=== PATIENT | female | born 1990 ===

== ENCOUNTER 2016-12-29 19:49 | Emergency (ER) | payer OTHER ==
[~2016-12-29] VITALS: Ht 154.9 cm; Wt 58.9 kg
[2016-12-29 19:53] VITALS: Ht 154.9 cm; Wt 58.9 kg
[2016-12-29] MEDS ORDERED: THIA50TA3 PO (20:22)
[2016-12-29] MEDS ORDERED: CHOL400T PO (20:22)
[2016-12-29 20:29] VITALS: BP 109/70; PULSE 81; TEMP 36.8; O2SAT 98
--- NOTE | 2016-12-30 00:37 | EMERGENCY ROOM VISIT NOTE ---
History First contact with patient: 20:02 Chief Complaint: BITE Stated Complaint: PAIN AND SWELLING DUE TO BEE STING History of Present Illness The patient is a 26 year old female who presents to the Emergency Room with complaints of localized reaction to bee stings approximately 1.5 hours ago. The patient reports being stung near the right breast, left upper chest region and arm. She reports mild itching and redness at the site of the stings. She is concerned that there may be a stinger in the left upper chest sting. She denies any prior history of bee sting allergies. She currently denies any chest pain, shortness of breath or lip/tongue/throat swelling Review of Systems 10 system review was performed and was negative except for pertinent positives and negatives as indicated in history of present illness Past Medical/Surgical History Medical Problems: (1) No significant past medical history Surgical Problems: (1) No history of previous surgery Family History Unremarkable Social History Smoking Status: Never Smoker Alcohol Use: none Marital Status: single Housing Status: lives with family Occupation Status: [employer] student Current/Historical Medications Scheduled Cholecalciferol (Vitamin D), 400 UNITS PO DAILY Thiamine Hcl (Vitamin B-1), 50 MG PO DAILY Physical Exam Vital Signs Date Time Temp Pulse Resp B/P (MAP) Pulse Ox O2 Delivery O2 Flow Rate FiO2 12/29/16 20:29 36.8 81 18 109/70 98 12/29/16 19:53 36.8 81 18 109/70 98 Room Air Physical Exam CONSTITUTIONAL: Healthy and well nourished. Alert and oriented X 3 with positive affect. Patient does not appear in any acute distress. HEENT: Normocephalic, atraumatic. Pupils equal, round and reactive. No facial edema or erythema noted. OROPHARYNX: No angioedema noted. NECK: Full active range of motion without discomfort. RESPIRATORY: Clear to auscultation bilaterally with no wheezing, crackles, rhonchi or stridor. CARDIOVASCULAR: Regular rate and rhythm with no murmurs, rubs or gallops. INTEGUMENTARY: Examination of the left upper chest wall shows a small area of erythema and minimal edema. Close examination with an otoscope does not show any retained stinger. Otherwise she has no other significant reactions, including urticaria/hives, ecchymosis or petechiae. NEUROLOGIC: No focal neurologic deficits noted. Medical Decision & Procedures Medications Administered Medications (Trade) Dose Ordered Sig/Luanne Route Start Time Stop Time Status Last Admin Dose Admin Diphenhydramine HCl (Benadryl Cap) 25 mg NOW ONCE PO 12/29/16 20:15 12/29/16 20:16 DC 12/29/16 20:25 25 MG ED Course Patient history and physical exam were performed. Nurse's notes were reviewed. Vital signs were reviewed and were normal. The patient appears to have local reaction at the site of the injections. She has no evidence for angioedema or other significant generalized allergic reaction. The patient was concern for possible stinger left in the left upper chest wall; otoscope exam does not show any retained foreign body. The patient was encouraged to intermittently apply ice to areas of discomfort. I also suggested taking Benadryl to help control her localized reaction. The patient was dispensed a home pack, along with Benadryl 25 mg orally. She was instructed to return to the emergency department for any developing hives or other significant reaction. The patient was happy with plan of care, and voiced understanding of all discharge instructions. Medical Decision Medication Reconcilliation Current Medication List: was personally reviewed by me Blood Pressure Screening Patient's blood pressure: Normal blood pressure Impression Primary Impression: Bee sting reaction Departure Information Dispostion Home / Self-Care Condition GOOD Forms HOME CARE DOCUMENTATION FORM, IMPORTANT VISIT INFORMATION Patient Instructions My [facility] Additional Instructions Suggest taking Benadryl 25-50 mg every 6 hours for the next 24 hours. Intermittently apply ice to areas of sting. Return to the emergency department for any progressively worsening swelling or development of hives. Problem Qualifiers Primary Impression: Bee sting reaction Encounter type: initial encounter Injury intent: undetermined intent Qualified Codes: T63.444A - Toxic effect of venom of bees, undetermined, initial encounter
== END 2016-12-29 20:30 | disposition home or self-care (01) ==
LOC: C.EDB 19:51 → C.EDD 20:30
DX: T63.441A Toxic effect of venom of bees, accidental (unintentional), initial encounter (principal)